=== PATIENT | female | born 1965 | race Caucasian/White ===

== ENCOUNTER 2017-12-20 20:41 | Emergency (ER) | payer OTHER ==
[~2017-12-20] VITALS: Ht 157.5 cm; Wt 77.1 kg
[~2017-12-20 20:41] MED LIST: HORMONE PATCH TRANSDERM; IBUPROFEN 800800 M1 PO; IRON325 PO; LINZESS72 MCG PO; NORCO 5-325 TA1 EACH PO; OMEPRAZOLE20 M1 PO; PERCOCET PO; VIVELLE-DOT1 EAC1 TD
[2017-12-20 22:56] LABS: HEMATOCRIT 38.7 % (37.0-47.0); MCH 27.3 pg (26.0-34.0); MCHC 33.6 g/dL (28.0-37.0); MCV 81.2 fL (80.0-100.0); MPV 7.1 fl. (7.2-11.1); RBC 4.77 mil/uL (4.20-5.00); RDW-CV 14.5 % (10.5-14.5); WBC 10.3 thou/uL (4.0-11.0)
[2017-12-20 23:04] LABS: ANION GAP 6 mmol/L (7-16); BUN 17 mg/dL (7-18); CALCIUM 10.2 mg/dL (8.5-10.1); CHLORIDE 104 mmol/L (98-107); CO2 28 mmol/L (21-32); CREATININE 0.9 mg/dL (0.6-1.3); GLUCOSE 111 mg/dL (70-99); POTASSIUM 3.8 mmol/L (3.5-5.1); SODIUM 138 mmol/L (136-145)
[2017-12-20 23:15] LABS: TROPONIN-I LEVEL <0.06 ng/mL (<0.06)
[2017-12-20] MEDS ORDERED: NORCO 5-325 TA1 EACH PO (23:17)
[2017-12-20 23:42] VITALS: BP 143/100
--- NOTE | 2017-12-21 12:42 | EKG ---
[place] [address] ELECTROCARDIOGRAM REPORT Name: JOANNEROXANNE VALLE Room: [facility]#: [id number] Admission: 12/20/17 Attend Phys: Discharge: 12/20/17 Date of : 67 Report #: [id number] THIS REPORT FOR: //name// [facility] ED Test Date: 2017-12-20 Test Time: 23:18:22 Pat Name: ROXANNE BOUDREAUX Department: Room: Gender: F [employer] Developer: dusty : 1965 Requested By: Lisandro Edouard Order Number: [id number] MD: Joe Raygoza Measurements Intervals [place] Rate: 69 P: -4 WV: 159 QRS: 6 QRSD: 111 T: 38 QT: 396 QTc: 425 Interpretive Statements Sinus rhythm Low voltage, precordial leads RSR' in V1 or V2, right VCD or RVH Baseline wander in lead(s) V5 Compared to ECG 07/12/2016 11:43:00 Low QRS voltage now present Electronically Signed On 12-21-2017 12:41:50 CDT by Joe Raygoza [email or web address] <ELECTRONICALLY SIGNED> By: Joe Raygoza MD, FAC 12/21/17 1241 2318 2318 Joe Raygoza MD, FAC /EPI
== END 2017-12-20 23:42 | disposition home or self-care (01) ==
LOC: M.ERS 20:41
PROVIDERS: Emergency Medicine Emergency Medical Services
DX: S46.811A Strain of other muscles, fascia and tendons at shoulder and upper arm level, right arm, initial encounter (principal); Z90.710 Acquired absence of both cervix and uterus; Z88.6 Allergy status to analgesic agent; X58.XXXA Exposure to other specified factors, initial encounter; Y93.89 Activity, other specified; Y92.89 Other specified places as the place of occurrence of the external cause; Y99.8 Other external cause status

== ENCOUNTER → 2018-05-22 | Outpatient (CLI) | payer OTHER | LOC: M.ULTRA 09:36 | DX: M79.601 Pain in right arm (principal) ==

== ENCOUNTER → 2018-07-21 | Outpatient (CLI) | payer OTHER | LOC: M.RAD 07-17 11:40 → M.ULTRA 07-17 11:40 → M.RAD 10:00 | DX: R92.8 Other abnormal and inconclusive findings on diagnostic imaging of breast (principal); N64.4 Mastodynia ==

== ENCOUNTER → 2019-08-18 | Outpatient (CLI) | payer OTHER | LOC: M.RAD 08-13 12:01 | DX: Z12.31 Encounter for screening mammogram for malignant neoplasm of breast (principal); M85.80 Other specified disorders of bone density and structure, unspecified site; Z78.0 Asymptomatic menopausal state ==